=== PATIENT | male | born 1945 ===

== ENCOUNTER 2017-02-02 22:11 | Observation (INO) | payer MEDICARE ==
--- NOTE | 2017-02-02 22:30 | ED PDOC ---
HPI: Male Pain Time Seen by Provider: 02/02/17 22:19 Chief Complaint (Nursing): Male Genitourinary Chief Complaint (Provider): hematuria History Per: Patient History/Exam Limitations: no limitations Onset/Duration Of Symptoms: Days (6) Current Symptoms Are (Timing): Still Present Quality Of Discomfort: Burning, "Pain" Additional History Per: Patient, Family Additional Complaint(s): 71 y/o male presents for eval of hematuria x 6 days. Associated painful urination. Denies fever, nausea/vomiting, chest pain, abdominal pain, changes in bowel movements. Patient seen by Dr. Lovell, Urologist, and sent to ED for further eval. Past Medical History Reviewed: Historical Data, Nursing Documentation, Vital Signs Vital Signs: Last Vital Signs Temp 97.9 F 02/02/17 22:14 Pulse 80 02/02/17 22:14 Resp 16 02/02/17 22:14 BP 158/85 H 02/02/17 22:14 Pulse Ox 99 02/02/17 22:14 - Medical History PMH: HTN - Surgical History Surgical History: No Surg Hx - Family History Family History: States: Unknown Family Hx - Home Medications Home Medications: Ambulatory Orders Medication Instructions Recorded Lisinopril/Hydrochlorothiazide 1 tab PO DAILY 02/02/17 [Lisinopril-Hctz 20-25 mg Tab] - Allergies Allergies/Adverse Reactions: Allergies Allergy/AdvReac Type Severity Reaction Status Date / Time No Known Allergies Allergy Verified 02/02/17 22:14 Review of Systems ROS Statement: Except As Marked, All Systems Reviewed And Found Negative Genitourinary Male: Positive for: Dysuria, Hematuria Physical Exam - Reviewed Nursing Documentation Reviewed: Yes Vital Signs Reviewed: Yes - Physical Exam Appears: Positive for: Well, Non-toxic, No Acute Distress Head Exam: Positive for: ATRAUMATIC, NORMAL INSPECTION, NORMOCEPHALIC Skin: Positive for: Normal Color Eye Exam: Positive for: Normal appearance ENT: Positive for: Normal ENT Inspection Cardiovascular/Chest: Positive for: Regular Rate, Rhythm Respiratory: Positive for: Normal Breath Sounds Gastrointestinal/Abdominal: Positive for: Normal Exam Back: Positive for: Normal Inspection Extremity: Positive for: Normal ROM Neurologic/Psych: Positive for: Alert, Oriented - Laboratory Results Result Diagrams: 02/02/17 23:05 02/02/17 23:05 - ECG ECG: Positive for: Viewed By Me (reviewed by ED attending) ECG Rhythm: Positive for: Sinus Rhythm O2 Sat by Pulse Oximetry: 99 Pulse Ox Interpretation: Normal - Radiology X-Ray: Viewed By Me X-Ray Interpretation: No Acute Disease - Progress ED Course And Treament: labs, urine, EKG, chest xray, IV fluids Case discussed with Dr. Lovell, who recommends admission under his service for OR in am. Patient to be kept NPO. Disposition - Clinical Impression Clinical Impression: Hematuria - Patient ED Disposition Is Patient to be Admitted: Yes - Disposition Disposition Time: 00:47 Condition: FAIR - Pt Status Changed To: Hospital Disposition Of: Observation - POA Present On Arrival: None
[2017-02-02 23:08] LABS: BASO % 0.5 % (0.0-2.0); EOS # 0.4 K/uL (0.0-0.7); EOS % 4.8 % (0.0-4.0); HEMATOCRIT 28.7 % (35.0-51.0); LYMPH % 11.1 % (20.0-40.0); MEAN CELL VOLUME 94.9 fl (80.0-94.0); MEAN CORPUSCULAR HEMOGLOBIN 31.3 pg (27.0-31.0); MEAN CORPUSCULAR HGB CONC 32.9 g/dL (33.0-37.0); MEAN PLATELET VOLUME 8.9 fl (7.2-11.7); MONO # 0.7 K/uL (0.0-0.8); NEUT % 75.6 % (50.0-75.0); NRBC % 0.1 % (0.0-0.0); RED CELL DISTRIBUTION WIDTH 14.4 % (11.5-14.5); WHITE BLOOD COUNT 9.2 K/uL (4.8-10.8)
[2017-02-02 23:17] LABS: ALB/GLOB RATIO 1.1 (1.0-2.1); BILIRUBIN,TOTAL 0.6 mg/dl (0.2-1.3); CALCIUM 8.6 mg/dL (8.4-10.2); POTASSIUM 4.3 MMOL/L (3.6-5.0); TOTAL PROTEIN 7.3 G/DL (6.3-8.2)
[2017-02-02 23:24] LABS: PARTIAL THROMBOPLASTIN TIME 28.2 SECONDS (23.3-32.5)
[2017-02-02] MEDS ORDERED: Sodium Chloride 0.9% 1,000 ML IV STA (23:35)
[2017-02-03 00:57] LABS: RBC URINE 9353 /hpf (0-3); URINE BACTERIA RARE (<OCC); URINE BILIRUBIN NEGATIVE (NEGATIVE); URINE BLOOD MODERATE (NEGATIVE); URINE COLOR RED (YELLOW); URINE GLUCOSE (UA) NEG (Normal); URINE KETONE NEGATIVE (NEGATIVE); URINE PROTEIN 100 mg/dL (NEGATIVE); URINE UROBILINOGEN 0.2-1.0 mg/dL (0.2-1.0); WBC URINE 71 /hpf (0-5)
[2017-02-03 00:58] LABS: URINE LEUKOCYTE ESTERASE SMALL Leu/uL (Negative)
[2017-02-03] MEDS ORDERED: Sodium Chloride 0.9% 500 ML IV STA (01:00)
[2017-02-03] MEDS ORDERED: cefTRIAXone (Rocephin) 1 gm Inj ONE (07:24)
[2017-02-03] MEDS ORDERED: Propofol 10 mg/ml Inj (20 ML) ONE (07:43)
[2017-02-03] MEDS ORDERED: Midazolam 2 MG/2 ML VIAL ONE (07:43)
[2017-02-03] MEDS ORDERED: Sevoflurane - Inhalation Anesthetic Liq (250 ml) ONE (07:52)
[2017-02-03] MEDS ORDERED: Lactated Ringer's 1,000 ML IV ONE (07:55)
[2017-02-03] MEDS ORDERED: cefTRIAXone (Rocephin) 1 gm Inj IM ONE (08:00)
--- NOTE | 2017-02-03 08:21 | CARD ---
APPROVED REPORT EKG Measurement Heart [id number] <Conclusion> Normal sinus rhythm Nonspecific IVCD Anterior infarct, age undetermined Abnormal ECG
[2017-02-03] MEDS ORDERED: Labetalol 5mg/ml (4ml) ONE (08:45)
[2017-02-03] MEDS ORDERED: Labetalol 5 mg/ml Inj 20ML IVP STA (08:55)
[2017-02-03] MEDS ORDERED: Labetalol 5 mg/ml Inj 20ML IVP ONE (09:05)
[2017-02-03] MEDS: HYDROmorphone 0.5 mg/0.5 ml ISec IVP PRN ×2 (09:15→09:25)
[2017-02-03] MEDS ORDERED: Labetalol 5mg/ml (4ml) IVP ONE (09:30)
--- NOTE | 2017-02-03 10:57 | OP ---
PROCEDURE DATE: 02/03/2017 PREOPERATIVE DIAGNOSIS: Gross hematuria, traumatic. POSTOPERATIVE DIAGNOSIS: Gross hematuria, traumatic. PROCEDURE PERFORMED: Cystoscopy with fulguration of prostatic urethra. The patient was placed on the operating table in dorsal lithotomy position. The area of the groin wa s draped and prepped in a sterile manner. Using a continuous flow resectoscope, I entered into the b ladder atraumatically. The area of blood clots and trauma was in the area of the prostatic urethra. I needed to resect a little bit of tissue that appeared to be dislodging and following that, I caute rized the prostatic urethra amply to stop all the active bleeders. The rest of the bladder appeared to be completely normal. The efflux was clear from the orifices at this time, so once the bleeding w as reasonably stopped, I then inserted a #22 three-way Ball catheter. CBI was begun. The patient w as taken from the operating room in good condition. I estimated the blood loss to be none at this ti me. Marimar Lovell MD cc: 48 TT: 02/03/2017 10:56:03 en
[2017-02-03 11:56] VITALS: O2SAT 97
[2017-02-03 12:40] VITALS: BP 161/80; PULSE 69; RESP 20; TEMP 98.1
--- NOTE | 2017-02-03 13:21 | RAD ---
HISTORY: admit COMPARISON: The the lumen M a TECHNIQUE: Chest PA and lateral FINDINGS: LUNGS: The lungs are well inflated and clear. PLEURA: No significant pleural effusion identified. No pneumothorax apparent. CARDIOVASCULAR: Normal. OSSEOUS STRUCTURES: No significant abnormalities. VISUALIZED UPPER ABDOMEN: Normal. OTHER FINDINGS: None. IMPRESSION: No active pulmonary disease.
== END 2017-02-03 14:11 | disposition home or self-care (01) ==
LOC: H.ER 22:11 → H.ERHOLD 02-03 00:34 → H.TEL 02-03 05:37
PROVIDERS: ADMIT Urology; ATTEND Urology
DX: R31.0 Gross hematuria (principal); I10 Essential (primary) hypertension
CPT/HCPCS: 52214; 71020; 80053; 81003; 85025; 85610; 85730; 86850; 86900; 87086; 88305; 93005; 96360; 99284; G0378; J0696; J1170; J2001; J2250; J2704; J3010; J7040; J7070; J7120

== ENCOUNTER 2017-03-28 08:23 | Day surgery (SDC) | payer MEDICARE ==
[2017-03-24 10:05] VITALS: BMI 27.3
[2017-03-28 09:01] VITALS: RESP 18
[2017-03-28] MEDS ORDERED: cefTRIAXone (Rocephin) 1 gm Inj ONE (12:07)
[2017-03-28] MEDS ORDERED: Propofol 10 mg/ml Inj (20 ML) ONE (12:11)
[2017-03-28] MEDS ORDERED: Midazolam 2 MG/2 ML VIAL ONE (12:11)
[2017-03-28] MEDS ORDERED: Lidocaine Hydrochloride 5 ML INJ ONE (12:11)
[2017-03-28] MEDS ORDERED: cefTRIAXone (Rocephin) 1 gm Inj IM ONE (12:21)
[2017-03-28] MEDS ORDERED: Lactated Ringer's 1,000 ML IV ONE (12:21)
[2017-03-28] MEDS ORDERED: HYDROmorphone 0.5 mg/0.5 ml ISec IVP PRN (13:23)
[2017-03-28 14:28] VITALS: O2SAT 99
[2017-03-28 15:03] VITALS: BP 158/75; PULSE 58; TEMP 97.2
--- NOTE | 2017-05-04 05:38 | OP ---
PROCEDURE DATE: 03/28/2017 PREOPERATIVE DIAGNOSIS: Gross hematuria. POSTOPERATIVE DIAGNOSIS: Prostatic bleeding. PROCEDURE PERFORMED: Cystoscopy with transurethral fulguration of prostatic urethral bleeding. DESCRIPTION OF PROCEDURE: The patient was placed on the operating room table in dorsal lithotomy pos ition, given general anesthesia. The area of the groin was draped and prepped at this time. Using a # cystoscope, entered into the bladder atraumatically. I did identify bleeding active and old in the area of the prostatic urethra. At this time, I used the opportunity to use a significant finesse unt of coagulating current to cauterize the bleeders in the prostatic urethra. Once it appeared to b e amply cauterized and there was no more significant obvious bleeding noted, then the cystoscope was removed. The patient was taken from the operating room in good condition. Marimar Lovell MD cc: 48 TT: 05/03/2017 19:37:17 [email or web address]
== END 2017-03-28 15:05 | disposition home or self-care (01) ==
LOC: H.OPSURG 08:23
PROVIDERS: ATTEND Urology
DX: R31.0 Gross hematuria (principal); I10 Essential (primary) hypertension
CPT/HCPCS: 52000; 88305; J0696; J2250; J2405; J2704; J3010; J7120